=== PATIENT | male | born 1945 | race Caucasian/White ===

== ENCOUNTER → 2017-03-22 | Outpatient (REF) | payer MEDICARE, OTHER | LOC: M LAB REF 13:07 | PROVIDERS: ATTEND Internal Medicine | DX: E29.1 Testicular hypofunction (principal) ==

== ENCOUNTER → 2017-05-25 | Outpatient (CLI) | payer MEDICARE, OTHER ==
--- NOTE | 2017-05-25 15:30 | REP ---
Supine abdomen two views: There are no comparisons. The bowel gas pattern is normal. There are calcifications in the pelvis, likely phleboliths. Additionally there is a calcification just inferior to the right sacroiliac joint, nonspecific, phleboliths versus ureteral. There are surgical clips in the left femoral area. Impression: Pelvic calcifications as described. Normal bowel gas pattern. Signed by Beau Doyle MD 05/25/2017 03:22 P
[2017-05-25 16:28] LABS: BASO # 0.1 10^3/uL (0.0-0.2); BASO % 0.6 % (0.0-1.0); EOS # 0.2 10^3/uL (0.0-0.50); EOS % 1.8 % (0.0-3.0); IMMATURE GRANULOCYTE % 0.5 % (0-0); LYMPH # 1.2 10^3/uL (1.5-4.5); LYMPH % 10.6 % (24.0-44.0); MEAN CORPUSCULAR HEMOGLOBIN 27.1 pg (27.0-33.0); MEAN CORPUSCULAR HGB CONC 31.3 g/dl (32.0-36.5); MEAN CORPUSCULAR VOLUME 86.6 fl (80.0-96.0); MONO # 0.7 10^3/uL (0.0-0.8); NEUTROPHILS % 80.5 % (36.0-66.0); PLATELET COUNT, AUTOMATED 361 10^3/uL (150-450); RED CELL DISTRIBUTION WIDTH 15.4 % (11.5-14.5); WHITE BLOOD COUNT 11.2 10^3/uL (4.0-10.0)
[2017-05-25 17:02] LABS: ALBUMIN 3.9 GM/DL (3.2-5.2); ALBUMIN/GLOBULIN RATIO 1.26 (1.00-1.93); BILIRUBIN,TOTAL 0.5 MG/DL (0.2-1.0); CALCIUM LEVEL 8.7 MG/DL (8.8-10.2); CREATININE FOR GFR 1.32 MG/DL (0.70-1.30); GLOMERULAR FILTRATION RATE 56.9 (>42); POTASSIUM SERUM 4.3 MEQ/L (3.5-5.1)
[2017-05-25 17:05] LABS: BACTERIA, URINE NONE SEEN; RBC, URINE 0-1 /hpf (0-3); SQUAMOUS EPITHELIAL CELL URINE SMALL AMOUNT /hpf (SMALL AMT)
[2017-05-25 17:06] LABS: MICROSCOPIC EXAM PERFORMED
== END ==
LOC: M WUC 14:28
PROVIDERS: ATTEND Physician Assistant
DX: R10.30 Lower abdominal pain, unspecified (principal); R93.5 Abnormal findings on diagnostic imaging of other abdominal regions, including retroperitoneum

== ENCOUNTER → 2017-11-16 | Outpatient (REF) | payer MEDICARE, OTHER ==
[2017-11-16 15:41] LABS: TESTOSTERONE 208 NG/DL (241-827)
== END ==
LOC: M LAB REF 13:47
DX: E29.1 Testicular hypofunction (principal)
CPT/HCPCS: 84403

== ENCOUNTER → 2018-01-01 | Outpatient (REF) | payer MEDICARE, OTHER ==
[2018-01-01 15:06] LABS: TESTOSTERONE 236 NG/DL (241-827)
== END ==
LOC: M LAB REF 13:38
DX: E29.1 Testicular hypofunction (principal)
CPT/HCPCS: 84403

== ENCOUNTER → 2018-04-02 | Outpatient (REF) | payer MEDICARE, OTHER ==
[2018-04-02 14:04] LABS: TESTOSTERONE 266 NG/DL (241-827)
== END ==
LOC: M LAB REF 13:28
DX: E29.1 Testicular hypofunction (principal)
CPT/HCPCS: 84403

== ENCOUNTER → 2018-09-24 | Outpatient (REF) | payer MEDICARE, OTHER | LOC: M LAB REF 12:29 | PROVIDERS: ATTEND Internal Medicine | DX: E29.1 Testicular hypofunction (principal) ==

== ENCOUNTER → 2019-04-02 | Outpatient (REF) | payer MEDICARE, OTHER ==
[2019-04-02 12:30] LABS: URIC ACID 6.7 MG/DL (3.5-7.2)
== END ==
LOC: M LAB REF 11:37
PROVIDERS: ATTEND Internal Medicine
DX: E29.1 Testicular hypofunction (principal); M1A.00X0 Idiopathic chronic gout, unspecified site, without tophus (tophi)

== ENCOUNTER → 2019-06-24 | Outpatient (REF) | payer MEDICARE, OTHER | LOC: M LAB REF 17:22 | PROVIDERS: ATTEND Internal Medicine | DX: M1A.0710 Idiopathic chronic gout, right ankle and foot, without tophus (tophi) (principal) ==

== ENCOUNTER → 2019-10-07 | Outpatient (REF) | payer MEDICARE, OTHER | LOC: M LAB REF 18:03 | PROVIDERS: ATTEND Internal Medicine | DX: M10.00 Idiopathic gout, unspecified site (principal) ==

== ENCOUNTER → 2020-11-19 | Outpatient (CLI) | payer MEDICARE, OTHER ==
[2020-11-19 11:16] LABS: BASO # 0.1 10^3/uL (0.0-0.2); BASO % 0.5 % (0.0-1.0); EOS # 0.1 10^3/uL (0.0-0.5); EOS % 1.5 % (0.0-3.0); HEMATOCRIT 41.3 % (42.0-52.0); HEMOGLOBIN 13.2 g/dl (13.5-17.5); MEAN CORPUSCULAR HEMOGLOBIN 29.3 pg (27.0-33.0); MEAN CORPUSCULAR VOLUME 91.6 fl (80.0-96.0); MONO # 0.7 10^3/uL (0.0-0.8); MONO % 7.2 % (2.0-8.0); NEUTROPHILS # 7.6 10^3/uL (1.5-8.5); NEUTROPHILS % 80.3 % (36.0-66.0); PLATELET COUNT, AUTOMATED 289 10^3/uL (150-450); RED BLOOD COUNT 4.51 10^6/uL (4.30-6.10); WHITE BLOOD COUNT 9.5 10^3/uL (4.0-10.0)
--- NOTE | 2020-11-19 11:22 | REP ---
INDICATION: LOWER ABD PAIN ? DIVERTICULITIS/ LABS FIRST COMPARISON: None TECHNIQUE: Axial noncontrast images from the lung bases to the pubic symphysis with coronal and sagittal reformations. This CT examination was performed using the following dose reduction techniques: Automated exposure control, adjustment of mA and/or kv according to the patient's size, and use of iterative reconstruction technique. FINDINGS: Mural/mucosal thickening with pericolonic inflammatory stranding surrounding multiple diverticula in the mid sigmoid colon (series 201 images [id number]) consistent with acute sigmoid diverticulitis. No free air or free fluid to suggest perforation. No drainable collection or abscess. No bowel obstruction. Remainder of the small and large bowel is grossly unremarkable. Normal terminal ileum and appendix are identified in the right lower quadrant. Liver, spleen, pancreas, gallbladder, and bilateral adrenal glands are normal. Left kidney demonstrates innumerable significant cystic changes measuring up to 9.5 cm diameter and associated hydronephrosis without hydroureter raising the possibility of UPJ obstruction cannot be excluded. The right kidney demonstrates approximately 3-4 cysts measuring up to 4 cm diameter. Further evaluation of the pelvis demonstrates normal bladder. Prostatomegaly noted. Small fat containing right inguinal hernia identified along with prior left inguinal hernia repair. Atherosclerotic changes to the aorta and vasculature noted without aneurysm. Musculoskeletal structures demonstrate age-related degenerative changes. Lung bases are clear. IMPRESSION: 1. Acute sigmoid diverticulitis without evidence for perforation or obstruction. No ascites or drainable collection/abscess. 2. Cystic changes to the bilateral kidneys (left greater than right). 3. Prostatomegaly with mass effect on the base of the bladder. <Electronically signed by Ari Godoy > 11/19/20 [id number]
[2020-11-19 11:45] LABS: ALBUMIN 3.9 GM/DL (3.2-5.2); ALT/SGPT 23 U/L (12-78); BILIRUBIN,TOTAL 0.8 MG/DL (0.2-1.0); BLOOD UREA NITROGEN 16 MG/DL (7-18); CALCIUM LEVEL 9.1 MG/DL (8.8-10.2); CARBON DIOXIDE LEVEL 26 MEQ/L (21-32); CHLORIDE LEVEL 107 MEQ/L (98-107); CREATININE FOR GFR 1.13 MG/DL (0.70-1.30); GLOMERULAR FILTRATION RATE > 60.0 (>42); GLUCOSE, FASTING 97 MG/DL (70-100); LIPASE 58 U/L (73-393); POTASSIUM SERUM 4.5 MEQ/L (3.5-5.1); SODIUM LEVEL 138 MEQ/L (136-145); TOTAL PROTEIN 7.4 GM/DL (6.4-8.2)
== END ==
LOC: M RAD 10:40
PROVIDERS: ATTEND Physician Assistant
DX: K57.32 Diverticulitis of large intestine without perforation or abscess without bleeding (principal); R10.30 Lower abdominal pain, unspecified

== ENCOUNTER → 2021-03-19 | Outpatient (REF) | payer MEDICARE, OTHER ==
[2021-03-19 17:00] LABS: PERCENT SATURATION 15.6 % (19.7-50.0); URIC ACID 3.7 MG/DL (3.5-7.2)
== END ==
LOC: M LAB REF 15:56
PROVIDERS: ATTEND Internal Medicine
DX: D64.9 Anemia, unspecified (principal); M10.00 Idiopathic gout, unspecified site

== ENCOUNTER → 2021-03-22 | Outpatient (CLI) | payer MEDICARE, OTHER ==
--- NOTE | 2021-03-22 09:36 | REP ---
INDICATION: PAIN COMPARISON: None. TECHNIQUE: AP, lateral, bilateral oblique views. FINDINGS: No evidence for acute fracture or dislocation and no significant soft tissue swelling, subcutaneous emphysema or foreign body. Generalized degenerative changes include subtle cortical irregularity to the medial and lateral malleolus as well as small soft tissue calcifications and vascular calcifications. The ankle mortise appears relatively intact. Linear foreign body at the level of the distal tibial metaphysis in the soft tissue possibly from prior intervention or trauma. IMPRESSION: Generalized age-related changes suggested. <Electronically signed by Ari Godoy > 03/22/21 [id number]
--- NOTE | 2021-03-22 09:37 | REP ---
INDICATION: PAIN COMPARISON: None. TECHNIQUE: AP, lateral, bilateral oblique and sunrise views. FINDINGS: Lateral and sunrise views demonstrate fraying along the anterior superior margin of the patella with calcifications at the quadriceps insertion suggesting tendinopathy. Remainder of the osseous structures and joint spaces are essentially intact and age-appropriate/normal. No evidence for acute or healed injury. No effusion. IMPRESSION: Degenerative changes related to the patella. <Electronically signed by Ari Godoy > 03/22/21 0993
== END ==
LOC: M WUC 09:14
PROVIDERS: ATTEND Internal Medicine
DX: M25.562 Pain in left knee (principal); M25.572 Pain in left ankle and joints of left foot; M79.5 Residual foreign body in soft tissue; M19.072 Primary osteoarthritis, left ankle and foot

== ENCOUNTER → 2021-06-10 | Outpatient (CLI) | payer SELFPAY | LOC: M LABSMTC 10:13 | PROVIDERS: ATTEND Pediatrics | DX: Z20.822 Contact with and (suspected) exposure to COVID-19 (principal) ==

== ENCOUNTER 2022-01-04 09:17 | Observation (INO) | payer MEDICARE, BC, OTHER ==
[~2022-01-04] VITALS: Ht 175.3 cm; Wt 89.1 kg
[~2022-01-04 09:17] MED LIST: ALLO300T2 PO; CETI10TA PO; EZET10TA21 PO; NASONEX INH; OMEP-173 PO; QVAR40AE12 INH; RAMI1CAP24 PO; TAMS1CAP17 PO
[2022-01-04] MEDS ORDERED: NS 500 ML IV ONE (09:30)
[2022-01-04 10:22] LABS: BASO % 0.5 % (0.0-1.0); EOS # 0.1 10^3/uL (0.0-0.5); EOS % 1.6 % (0.0-3.0); HEMATOCRIT 37.5 % (42.0-52.0); HEMOGLOBIN 12.5 g/dl (13.5-17.5); LYMPH # 0.7 10^3/uL (1.5-5.0); LYMPH % 9.7 % (24.0-44.0); MEAN CORPUSCULAR HEMOGLOBIN 30.1 pg (27.0-33.0); MEAN CORPUSCULAR HGB CONC 33.3 g/dl (32.0-36.5); MEAN CORPUSCULAR VOLUME 90.4 fl (80.0-96.0); MONO # 0.4 10^3/uL (0.0-0.8); MONO % 5.3 % (2.0-8.0); NEUTROPHILS # 6.1 10^3/uL (1.5-8.5); NEUTROPHILS % 82.2 % (36.0-66.0); PLATELET COUNT, AUTOMATED 204 10^3/uL (150-450); RED BLOOD COUNT 4.15 10^6/uL (4.30-6.10); WHITE BLOOD COUNT 7.4 10^3/uL (4.0-10.0)
[2022-01-04 10:49] LABS: CK-MB VALUE MASS 2.1 NG/ML (<3.6); MB/CK RELATIVE INDEX 1.91 (< OR =4)
[2022-01-04 10:54] LABS: BLOOD UREA NITROGEN 21 MG/DL (7-18); CALCIUM LEVEL 7.9 MG/DL (8.8-10.2); CARBON DIOXIDE LEVEL 22 MEQ/L (21-32); CHLORIDE LEVEL 112 MEQ/L (98-107); CREATININE FOR GFR 1.22 MG/DL (0.70-1.30); FREE T4 1.01 NG/DL (0.76-1.46); GLOMERULAR FILTRATION RATE > 60.0 (>42); GLUCOSE, FASTING 106 MG/DL (70-100); MAGNESIUM LEVEL 1.6 MG/DL (1.8-2.4); SODIUM LEVEL 142 MEQ/L (136-145)
[2022-01-04 10:59] LABS: RSV AMPLIFICATION NEGATIVE (NEGATIVE)
[2022-01-04] MEDS ORDERED: PROAAER10 INH (12:15)
[2022-01-04] MEDS ORDERED: MOME50SP2 NARES (12:15)
[2022-01-04] MEDS ORDERED: MAGN400T2 PO (12:15)
[2022-01-04] MEDS ORDERED: RA T500C2 PO (12:15)
[2022-01-04] MEDS ORDERED: ASCO500T PO (12:15)
[2022-01-04] MEDS ORDERED: HOME MED LIST COMPLETE! XX SCH (12:20)
[2022-01-04] MEDS ORDERED: ALBUTEROL 90 MCG/ACT 8GM HFA INHALER INH PRN (12:20)
[2022-01-04] MEDS ORDERED: MAG SULF 1GM/100ML (MAG RUN) 1 GM in IV 1 EA IV ONE (12:35)
[2022-01-04 13:49] VITALS: BP 130/90
[2022-01-04 18:39] VITALS: BP_SYST 149; BP_SYST 152; BP_SYST 154; BP_DIAS 90; BP_DIAS 93; BP_DIAS 95
[2022-01-04 20:54] VITALS: BP 160/82
[2022-01-04] MEDS ORDERED: ramipriL 5 MG CAP PO SCH (21:00)
[2022-01-04] MEDS ORDERED: TAMSULOSIN 0.4 MG CAP PO SCH (21:00)
[2022-01-04 21:14] VITALS: BP 166/84
[2022-01-05 05:08] VITALS: BP 140/82
[2022-01-05 06:06] LABS: HEMATOCRIT 38.5 % (42.0-52.0); HEMOGLOBIN 12.9 g/dl (13.5-17.5); MEAN CORPUSCULAR HEMOGLOBIN 30.5 pg (27.0-33.0); MEAN CORPUSCULAR HGB CONC 33.5 g/dl (32.0-36.5); PLATELET COUNT, AUTOMATED 226 10^3/uL (150-450); RED BLOOD COUNT 4.23 10^6/uL (4.30-6.10)
[2022-01-05 06:31] LABS: BLOOD UREA NITROGEN 14 MG/DL (7-18); CALCIUM LEVEL 8.7 MG/DL (8.8-10.2); CARBON DIOXIDE LEVEL 25 MEQ/L (21-32); CHLORIDE LEVEL 111 MEQ/L (98-107); CREATININE FOR GFR 1.15 MG/DL (0.70-1.30); GLOMERULAR FILTRATION RATE > 60.0 (>42); GLUCOSE, FASTING 96 MG/DL (70-100); MAGNESIUM LEVEL 1.8 MG/DL (1.8-2.4); PHOSPHORUS LEVEL 3.8 MG/DL (2.5-4.9); POTASSIUM SERUM 4.7 MEQ/L (3.5-5.1); SODIUM LEVEL 142 MEQ/L (136-145)
[2022-01-05] MEDS: ENOXAPARIN 40MG/0.4ML SYRINGE (J1650 PER 10MG) SC SCH ×2 (08:48→08:54)
[2022-01-05] MEDS ORDERED: CETIRIZINE (ZyrTEC) 10 MG TAB PO SCH (09:00)
[2022-01-05] MEDS ORDERED: OMEPRAZOLE 20MG CAP PO SCH (09:00)
[2022-01-05] MEDS ORDERED: ASCORBIC ACID 500 MG TAB PO SCH (09:00)
[2022-01-05] MEDS ORDERED: EZETIMIBE 10MG TABLET (ZETIA) PO SCH (09:00)
[2022-01-05] MEDS ORDERED: allopurinoL 300 MG TAB PO SCH (09:00)
[2022-01-05] MEDS ORDERED: MAGNESIUM OXIDE 400MG TAB (MAG-OX) PO SCH (09:00)
[2022-01-05] MEDS ORDERED: ASPI81CH33 PO (10:44)
[2022-01-05] MEDS ORDERED: METO1TAB87 PO (10:52)
== END 2022-01-05 11:45 | disposition home or self-care (01) ==
LOC: EDBD 09:17 → M ED 09:17 → M ED INP 12:12 → ENRESERV 12:41 → M MSPAV 13:49
PROVIDERS: ADMIT Internal Medicine; ATTEND Internal Medicine
DX: R55 Syncope and collapse (principal); R94.31 Abnormal electrocardiogram [ECG] [EKG]; I10 Essential (primary) hypertension; E78.5 Hyperlipidemia, unspecified; J45.909 Unspecified asthma, uncomplicated; K21.9 Gastro-esophageal reflux disease without esophagitis; M10.9 Gout, unspecified; N40.0 Benign prostatic hyperplasia without lower urinary tract symptoms; E83.42 Hypomagnesemia; Z91.041 Radiographic dye allergy status; Z79.899 Other long term (current) drug therapy; Z79.51 Long term (current) use of inhaled steroids; Z79.82 Long term (current) use of aspirin
CPT/HCPCS: 36415; 70450; 80048; 82550; 82553; 83735; 84100; 84439; 84443; 84484; 85025; 85027; 87631; 93005; 93041; 93306; 94760; 96361; 96365; 97162; 99285; G0378; J3475

== ENCOUNTER → 2022-01-09 | Outpatient (CLI) | payer MEDICARE, BC, OTHER ==
[~2022-01-09] MED LIST changes: +ASCO500T PO; +ASPI81CH33 PO; +MAGN400T2 PO; +METO1TAB87 PO; +MOME50SP2 NARES; +PROAAER10 INH; +RA T500C2 PO
== END ==
LOC: M LABSMTC 09:47
PROVIDERS: ATTEND Anesthesiology
DX: Z11.52 Encounter for screening for COVID-19 (principal); Z20.822 Contact with and (suspected) exposure to COVID-19

== ENCOUNTER 2022-01-12 10:48 | Day surgery (SDC) | payer MEDICARE, BC, OTHER ==
[~2022-01-12] VITALS: Ht 175.3 cm; Wt 79.4 kg
[~2022-01-12 10:48] MED LIST changes: +LIDOCAINE 2% 100MG/5ML SDV (FOR ANES.) As Ordered ONE; +NS 1,000 ML IV ONE; +fentaNYL 100 MCG/2 ML INJECTION As Ordered ONE; +propofoL 500 MG/50 ML VIAL As Ordered ONE
[2022-01-12] MEDS ORDERED: LABETALOL 100MG/20ML VIAL As Ordered ONE (12:27)
[2022-01-12 12:55] VITALS: BP 141/79
== END 2022-01-12 13:12 | disposition home or self-care (01) ==
LOC: M OPP 10:48
PROVIDERS: ATTEND Internal Medicine Gastroenterology
DX: Z12.11 Encounter for screening for malignant neoplasm of colon (principal); Z86.010 Personal history of colon polyps; K57.30 Diverticulosis of large intestine without perforation or abscess without bleeding; K64.0 First degree hemorrhoids; K22.89 Other specified disease of esophagus; J45.909 Unspecified asthma, uncomplicated; N40.0 Benign prostatic hyperplasia without lower urinary tract symptoms; Z79.51 Long term (current) use of inhaled steroids; Z79.811 Long term (current) use of aromatase inhibitors; Z79.899 Other long term (current) drug therapy; Z91.041 Radiographic dye allergy status
CPT/HCPCS: 43239; 88305; G0105; J3010

== ENCOUNTER → 2022-06-17 | Outpatient (REF) | payer MEDICARE, OTHER ==
[~2022-06-17] MED LIST changes: -LIDOCAINE 2% 100MG/5ML SDV (FOR ANES.) As Ordered ONE; -NS 1,000 ML IV ONE; -fentaNYL 100 MCG/2 ML INJECTION As Ordered ONE; -propofoL 500 MG/50 ML VIAL As Ordered ONE
== END ==
LOC: M LAB REF 16:15
PROVIDERS: ATTEND Internal Medicine
DX: M10.00 Idiopathic gout, unspecified site (principal)

== ENCOUNTER → 2022-12-28 | Outpatient (REF) | payer MEDICARE, OTHER | LOC: M LAB REF 16:29 | PROVIDERS: ATTEND Internal Medicine | DX: I12.9 Hypertensive chronic kidney disease with stage 1 through stage 4 chronic kidney disease, or unspecified chronic kidney disease (principal) ==

== ENCOUNTER → 2023-12-25 | Outpatient (CLI) | payer MEDICARE, OTHER ==
[~2023-12-25] MED LIST changes: -RAMI1CAP24 PO; +RAMI5CAP60 PO
== END ==
LOC: M WUC 11:55
PROVIDERS: ATTEND Internal Medicine
DX: R05.8 Other specified cough (principal)

== ENCOUNTER → 2025-02-24 | Outpatient (CLI) | payer MEDICARE, BC ==
[~2025-02-24] MED LIST changes: -RA T500C2 PO; +TURM500C10 PO
== END ==
LOC: M PLAIMG 12:47
PROVIDERS: ATTEND Internal Medicine
DX: I77.810 Thoracic aortic ectasia (principal)

== ENCOUNTER → 2025-05-21 | Outpatient (REF) | payer MEDICARE, BC ==
[~2025-05-21] MED LIST changes: -EZET10TA21 PO; +EZET10TA57 PO
== END ==
LOC: M LAB REF 18:26
PROVIDERS: ATTEND Internal Medicine
DX: I12.9 Hypertensive chronic kidney disease with stage 1 through stage 4 chronic kidney disease, or unspecified chronic kidney disease (principal)